=== PATIENT | female | born 2000 | race African-American/Black ===

== ENCOUNTER 2021-05-31 16:10 | Emergency (ER) | payer BC ==
[2021-05-31] MEDS ORDERED: ALBUTEROL/IPRATROPIUM 3 ML NEB NEB ONE (18:15)
[2021-05-31] MEDS ORDERED: PREDNISONE 20 MG TAB PO ONE (18:15)
[2021-05-31] MEDS ORDERED: PREDNISONE 20 MG TAB ONE (18:26)
[2021-05-31] MEDS ORDERED: ALBUTEROL/IPRATROPIUM 3 ML NEB ONE (18:27)
[2021-05-31] MEDS ORDERED: VENTOLIN HFA18 GM INH (19:11)
[2021-05-31] MEDS ORDERED: TAMIFLU75 MG PO (19:12)
[2021-05-31] MEDS ORDERED: BROMFED DM COU118 ML PO (19:14)
[2021-05-31] MEDS ORDERED: PREDNISONE20 MG PO (19:17)
== END 2021-05-31 19:59 | disposition home or self-care (01) ==
LOC: FSED 16:59
DX: J10.1 Influenza due to other identified influenza virus with other respiratory manifestations (principal); J98.01 Acute bronchospasm; R05.9 Cough, unspecified; M08.0A Unspecified juvenile rheumatoid arthritis, other specified site
CPT/HCPCS: 71046; 83518; 87400; 99283; J7512